=== PATIENT | female | born 1960 | race Caucasian/White ===

== ENCOUNTER 2020-07-01 11:32 | Outpatient (REF) | payer OTHER, SELFPAY ==
--- NOTE | ~2020-07-01 | MM_ITS ---
EXAMINATION: MM SCREENING DIGITAL BREAST TOMOSYNTHESIS, BILATERAL CLINICAL INFORMATION: Screening. Asymptomatic. The lifetime risk of breast cancer based on the Tyrer-Cuzick Model is 8%. COMPARISON: Mammography: 06/25/2019, 06/19/2018, 06/08/2017 TECHNIQUE: Digital breast tomosynthesis is performed in both the craniocaudal and mediolateral oblique views along with computer-aided detection (CAD). Synthesized 2D images are generated from the tomosynthesis. FINDINGS: There are scattered areas of fibroglandular density (ACR BI-RADS breast composition Category b). There are no significant masses, abnormal calcifications, or other abnormalities. The axilla and skin contours are unremarkable. Parenchymal pattern is similar to prior studies. No significant changes. MM/MM tomosynthesis screening BI IMPRESSION: No mammographic evidence of malignancy. ASSESSMENT: BI-RADS 1: Negative RECOMMENDATION: Routine annual mammography screening. This patient's information was entered into a reminder system with a target due date for their next mammogram.
== END 2020-07-01 11:33 | disposition home or self-care (01) ==
LOC: HO.MAMMO 11:32
PROVIDERS: Visit Provider Internal Medicine
DX: Z12.31 Encounter for screening mammogram for malignant neoplasm of breast (principal)
CPT/HCPCS: 77063; 77067

== ENCOUNTER 2021-07-03 15:21 | Outpatient (REF) | payer OTHER, SELFPAY ==
--- NOTE | ~2021-07-03 | MM_ITS ---
EXAMINATION: MM SCREENING DIGITAL BREAST TOMOSYNTHESIS, BILATERAL CLINICAL INFORMATION: Screening. Asymptomatic. The lifetime risk of breast cancer based on the Tyrer-Cuzick Model is 6%. COMPARISON: Mammography: 07/01/2020, 06/25/2019, 06/19/2018, 06/08/2017 TECHNIQUE: Digital breast tomosynthesis is performed in both the craniocaudal and mediolateral oblique views along with computer-aided detection (CAD). Synthesized 2D images are generated from the tomosynthesis. FINDINGS: There are scattered areas of fibroglandular density (ACR BI-RADS breast composition Category b). There are no significant masses, abnormal calcifications, or other abnormalities. Parenchymal pattern is similar to prior studies. Minor asymmetries are stable. There is no developing density. No architectural abnormality. The axilla and skin contours are unremarkable. MM/MM tomosynthesis screening BI IMPRESSION: No significant changes from prior studies. ASSESSMENT: BI-RADS 1: Negative RECOMMENDATION: Routine annual mammography screening. This patient's information was entered into a reminder system with a target due date for their next mammogram.
== END 2021-07-03 15:22 | disposition home or self-care (01) ==
LOC: HO.MAMMO 15:21
PROVIDERS: Visit Provider Internal Medicine
DX: Z12.31 Encounter for screening mammogram for malignant neoplasm of breast (principal)
CPT/HCPCS: 77063; 77067

== ENCOUNTER 2022-08-18 09:38 | Outpatient (REF) | payer OTHER, SELFPAY ==
--- NOTE | ~2022-08-18 | MM_ITS ---
EXAMINATION: MM SCREENING DIGITAL BREAST TOMOSYNTHESIS, BILATERAL CLINICAL INFORMATION: Screening. Asymptomatic. The lifetime risk of breast cancer based on the Tyrer-Cuzick Model is 7%. COMPARISON: Multiple prior exams, most recent 07/03/2021. TECHNIQUE: Digital breast tomosynthesis is performed in both the craniocaudal and mediolateral oblique views along with computer-aided detection (CAD). Synthesized 2D images are generated from the tomosynthesis. FINDINGS: There are scattered areas of fibroglandular density (ACR BI-RADS breast composition Category b). There are no abnormal calcifications. The bilateral axilla and skin contours are unremarkable. Right breast shows no developing density or interval mass or architectural abnormality. Left breast CC view has asymmetric density retroareolar area likely related to summation artifact and positioning. Patient will be recalled for additional imaging. MM/MM tomosynthesis screening BI IMPRESSION: Left: -Asymmetric density retroareolar region, likely summation artifact. Right: -No mammographic evidence of malignancy. ASSESSMENT: BI-RADS 0: Incomplete - Need Additional Imaging Evaluation RECOMMENDATION: 1. Additional views left breast (spot CC, nipple in profile, standard ML nipple in profile). 2. Targeted ultrasound if warranted after review of the additional views. 3. Radiology department staff will contact the patient for additional imaging. This patient's information was entered into a reminder system with a target due date for their next mammogram.
== END 2022-08-18 09:39 | disposition home or self-care (01) ==
LOC: HO.MAMMO 09:38
PROVIDERS: PCP Internal Medicine; Visit Provider Internal Medicine
DX: Z12.31 Encounter for screening mammogram for malignant neoplasm of breast (principal)
CPT/HCPCS: 77063; 77067

== ENCOUNTER 2022-09-13 13:23 | Outpatient (REF) | payer OTHER, SELFPAY ==
--- NOTE | ~2022-09-13 | MM_ITS ---
EXAMINATION: MM DIAGNOSTIC DIGITAL BREAST TOMOSYNTHESIS, LEFT CLINICAL INFORMATION: Recall from screening for asymmetric density retroareolar region, likely summation artifact. COMPARISON: Prior mammography exams, including most recent 08/18/2022. TECHNIQUE: Digital breast tomosynthesis is performed. 2D images are generated from the tomosynthesis. The following views are obtained: Spot CC, spot MLO, rolled CC x2. FINDINGS: There are scattered areas of fibroglandular density (ACR BI-RADS breast composition Category b). The additional views show no persistent asymmetric density. There is no interval mass or developing density or architectural abnormality. Results are discussed with the patient at time of visit. MM/MM tomosynthesis added views L IMPRESSION: Additional imaging demonstrates no significant changes from prior studies. ASSESSMENT: BI-RADS 1: Negative RECOMMENDATION: Routine annual mammography screening. This patient's information was entered into a reminder system with a target due date for their next mammogram.
== END 2022-09-13 13:24 | disposition home or self-care (01) ==
LOC: HO.MAMMO 13:23
PROVIDERS: PCP Internal Medicine; Visit Provider Internal Medicine
DX: R92.2 Inconclusive mammogram (principal)
CPT/HCPCS: 77061; 77065

== ENCOUNTER 2023-08-24 13:21 | Outpatient (REF) | payer OTHER, SELFPAY | END 2023-08-24 13:22 | disposition home or self-care (01) | LOC: HO.MAMMO 13:21 | PROVIDERS: PCP Internal Medicine; Visit Provider Internal Medicine | DX: Z12.31 Encounter for screening mammogram for malignant neoplasm of breast (principal) | CPT/HCPCS: 77063; 77067 ==

== ENCOUNTER → 2023-08-24 13:30 | Outpatient (BNV) | payer OTHER, SELFPAY | PROVIDERS: PCP Internal Medicine; Visit Provider Radiology Diagnostic Radiology | DX: Z12.31 Encounter for screening mammogram for malignant neoplasm of breast (principal) | CPT/HCPCS: 77063; 77067 ==

== ENCOUNTER 2024-08-30 14:04 | Outpatient (REF) | payer OTHER, SELFPAY ==
--- OUTSIDE RECORDS SUMMARY | 2024-08-30 17:08 | XMS_ITS | Data Portability ---
Author Organization [facility] [address] Address [address] [place] [address] Care Team Providers Care Life Insurance Actuary Name Role Phone ARMANDO AHMADI Primary Care Provider Assessment No assessment recorded. Plan of Treatment Reminders Order Date Submit Date Provider Last Modified By Organization Details Last Modified Time Details Appointments None recorded. Lab None recorded. Referral None recorded. Procedures None recorded. Surgeries None recorded. Imaging None recorded. Medication Orders amoxicillin 875 mg-potassiu m clavulanate 125 mg tablet 2022 023 [facility] #[id number], [address] [place], [address], 13:30:47 Patient TargetsNo targets recorded. Patient Instructions Encounter Date Encounter Id Patient Instructions Last Modified By Organization Details Last Modified Time 09/11/2022 [id number] earache: care instructions Not available 09/11/2022 13:30:45 ear infection (otitis media): care instructions Not available 09/11/2022 13:30:45 An ear infection may start with a cold and affect the middle ear (otitis media). It can hurt a lot. Most ear infections clear up on their own in a couple of days and do not need antibiotics. Also, antibiotics do not work against viruses, which may be the cause of your infection. Regular doses of pain relievers are the best way to reduce your fever and help you feel better. How can you care for yourself at home? Take pain medicines exactly as directed. If the doctor gave you a prescription medicine for pain, take it as prescribed. If you are not taking a prescription pain medicine, take an vzsy-vrg-hsbvixn medicine, such as acetaminophen (Tylenol), ibuprofen (Advil, Motrin), or naproxen (Aleve). Read and follow all instructions on the label. Do not take two or more pain medicines at the same time unless the doctor told you to. Many pain medicines have acetaminophen, which is Tylenol. Too much acetaminophen (Tylenol) can be harmful. Plan to take a full dose of pain reliever before bedtime. Getting enough sleep will help you get better. Try a warm, moist face cloth on the ear. It may help relieve pain. If your doctor prescribed antibiotics, take them as directed. Do not stop taking them just because you feel better. You need to take the full course of antibiotics. Not available 09/11/2022 13:30:35 Reason for Referral None Reported. Problems No Known Problems Medical Equipment None Reported. Allergies Allergen ID Allergen Name Allergen Category Reaction Reaction Severity Criticality Documentation Date Start Date Code Code System Note Provider Name and Address Organization Details Recorded Time 970852 Substance with sulfonami de structure and antibacte rial mechanism of action (substanc e) medicatio n anaphylax is Not available high 09/11/2022 71082 8003 SNOMED CARIN Murillo - [facility] 3 12:33:50 Medications Name Sig Start Date Stop Date Status Note LastModified by Organization Details LastModified Time desonide 0.05 % topical cream APPLY AM AND PM AROUND NOSE AND CORNERS OF MOUTH FOR 5-7 DAYS WHEN NEEDED 09/11 completed Not Available Not Available Not Available norethindro ne acetate 5 mg tablet PLEASE SEE ATTACHED FOR DETAILED DIRECTION S active Not Available Not Available No t Available methylpredn isolone 4 mg tablets in a dose pack TAKE 6 TABLETS ON DAY 1 DIRECTED ON PACKAGE AND DECREASE BY 1 TAB EACH DAY FOR A TOTAL OF 6 DAYS 09/11 completed Not Available Not Available Not Available naproxen 500 mg tablet TAKE 1 TABLET BY MOUTH 2 TIMES DAILY NEEDED FOR PAIN (TAKE WITH FOOD.) FOR UP TO 30 DAYS. active Not Available Not Available No t Available amoxicillin 875 mg-potassiu m clavulanate 125 mg tablet TAKE 1 TABLET BY MOUTH EVERY 12 HOURS WITH MEALS FOR 10 DAYS active Not Available Not Available No t Available Vitals Date Recorded Body height Body mass index (BMI) Body weight Oxygen saturation Oxygen saturation in Arterial blood by Pulse oximetry Pain severity - 0-10 verbal numeric rating [Score] - Reported Heart rate Respiratory rate Body temperature Systolic blood pressure Diastolic blood pressure Provider Name and Address Organization Details Last Updated DateTime 177.8 cm 33 kg/m2 214483. 25 g 97 % 97 % 3 80 /min 20 /min 97.6 [degF] 130 mm[Hg] 85 mm[Hg] Kelley Rosaura PA - [facility] 12:35:38 Social History Question Answer Notes LastModified by Organizat ion Details LastModified Time Tobacco Smoking Status Never Smoker Kelleytomer Kaplan null, PA - [facility] 09/11/2022 12:34:16 What Is Your Level Of Alcohol Consumption? None Information not available 09/11/2022 Have You Had Direct Contact, Or Contact During Intimacy, With Monkeypox Rash, Scabs, Or Body Fluids From A Person With Monkeypox? No Information not available 09/11/2022 Do You Use Any Illicit Or Recreational Drugs? No Information not available 09/11/2022 Have You Recently Traveled Abroad? No Information not available 09/11/2022 Do You Or Have You Ever Used Any Other Forms Of Tobacco Or Nicotine? No Information not available 09/11/2022 Sex: Unknown Functional Status None recorded. Mental Status None recorded. Family History Relationship Description Onset Age of this Age Resolved Age Notes LastModified by Organization Details LastModified Time Father No current problems or disability Not available 09/11 12:34:11 Mother No current problems or disability Not available 09/11 12:34:11 Medical History No medical history recorded. Gynecological HistoryNo gynecological history recorded. Obstetrics History GPAL:G 0 P 0 0 0 0 Immunizations Vaccine Type Date Status Note Provider Nam e and Address Organization Details Recorded Time Influenza, split virus, quadrivalent, preservative 9 completed Kelley Rosaura null, PA - [facility] 09/11/2022 12:33:58 Influenza, split virus, quadrivalent, preservative 7 completed Kelley [place] null, PA - [facility] 09/11/2022 12:33:58 Influenza, split virus, quadrivalent, preservative 8 completed Kelley Rosaura null, PA - [facility] 09/11/2022 12:33:58 Influenza, recombinant, quadrivalent, PF 0 completed Kelley Rosaura null, PA - [facility] 09/11/2022 12:33:58 COVID-19, mRNA, LNP-S, PF, 100 mcg/0.5mL dose or 50 mcg/0.25mL dose 1 completed Kelley Rosaura null, PA - [facility] 09/11/2022 12:33:58 COVID-19 vaccine, vector-nr, rS-Ad26, PF, 0.5 mL 1 completed Kelley Rosaura null, PA - [facility] 09/11/2022 12:33:58 Influenza, split virus, quadrivalent, PF 2 completed Kelley [place] null, PA - [facility] 09/11/2022 12:33:58 Past Encounters Encounter ID Performer Location Encounter Start Date Encounter Closed Date Diagnosis/Indication Diagnosis SNOMED-CT Code Diagnosis ICD10 Code Diagnosis Note [id number] [address] [place] [address] 08/03/2017 18:07:07 08/03/2017 19:26:31 [id number] [address] [place] [address] 01/15/2018 16:57:07 01/15/2018 17:15:19 [id number] [address] [place] [address] 06/16/2019 16:59:16 06/16/2019 17:35:47 [id number] Paxton Alcantara NP [address] [place] [address] 09/11/2022 08:54:56 09/11/2022 13:38:01 Acute right otitis media 135676206 H66.91 Health Concerns Section Related Observation LastModified by Organization Detai ls LastModified Time None Recorded Concern Status LastModified by Organization Details LastModified Time None Recorded Advance Directives Directive None Recorded Payers Encounter Date Sequence Insurance Name Policy Number Policy Hinojosa Covered Member ID Hinojosa Member ID Guarantor Name 08/03/2017 1 [facility] [place] [id number] Elaine D D Sleigh [id number] Elaine D Sleigh 01/15/2018 1 [facility] [place] [id number] Elaine D D Sleigh [id number] Elaine D Sleigh 06/16/2019 1 [facility] [place] [id number] Elaine D D Sleigh [id number] Elaine D Sleigh 09/11/2022 1 [facility] [place] [id number] Elaine D D Sleigh [id number] Elaine D Sleigh Notes Date Note Type Note Provider Name and Address Organization Details Recorded Time 09/11/2022 text/html Ear Pain Brief HPIReported bypatient.Location :pain radiates to jaw; right Onset/Timing:const ant pain; gradual onset Duration:occurs daily; constant pain Quality:no itching; no discharge from the ears; no burning;aching pain;sharp pain Severity:getting worse; no fever; able to perform daily activities;interfe res with ability to sleep Context:no recent trauma; no recent ear infection; no recent swimming; no immunocompromise; no dental problems; no recent airplane travel; no scuba diving; non-smoker;recent URI Alleviating factors:NSAIDs Aggravating factors:sinus infections; allergies Associated Symptoms:no cough; no jaw popping or clicking; No decreased appetite; no discharge from ear; no nasal congestion; no nasal discharge; no hearing loss; no sore throat; no dental pain; no jaw pain; no tinnitus;sense of fullness/pressure; no decreased hearing; no muffled hearing Paxton Alcantara NP [address] [place] [place], [address], [place] - [facility] 09/11/2022 13:31:06 OBGyn Episode No OBEpisode recorded.
--- OUTSIDE RECORDS SUMMARY | 2024-08-30 17:08 | XMS_ITS | Patient Health Record ---
Author Organization [facility] Address [address] [place] [address] Care Team Providers Care Journalists And Other Writers Name Role Phone ARMANDO AHMADI M.D. Primary Care Provider SHANNAN Myers Unavailable [phone] Allergies Allergen (clinical drug ingredient) Drug/Non Drug Allergy documented on EMR Reaction Allergy Type Onset Date Status Substance with sulfonamide structure and antibacterial mechanism of action (substance) Sulfa Antibiotics anaphylaxis Drug Allergy Active Reason For Referral No Information Medications Medication SIG (Take, Route, Frequency, Duration) Notes Start Date End Date Status Aygestin 5 MG 1 tablet Orally q 4h rs-d1, v7cat-k6, j5vdb-f0, then twice a day for 14 days for 30 days 09/14/2022 Active Social History Tobacco Use: Social History Observation Description Date Details (start date - stop date) Never Smoker NA - NA Tobacco Use/Smoking Question Answer Notes Are you a nonsmoker Alcohol Screen (Audit-C) Question Answer Notes Did you have a drink contain ing alcohol in the past year? Yes How often did you have a dri nk containing alcohol in the past year? Monthly or less (1 point) How many drinks did you have on a typical day when you were drinking in the past year? 3 or 4 drinks (1 point) How often did you have 6 or more drinks on one occasion in the past year? Never (0 point) Points 2 Interpretation Negative Problems Problem Type SNOMED Code ICD Code Onset Dates Problem Status W/U Status Risk Notes Problem Postmenopausal bleeding (91805218) Postmenopausal bleeding (N95.0) Active confirmed Plan Of Treatment Pending Test Test Name Order Date Sonohysterogram 09/21/2022 Insurance Providers Payer Name Payer Address Payer Phone Subscriber Number Group Number Insured Name Patient Relationship to Insured Coverage Start Date Coverage End Date [facility] [address] [place] [address] [phone] [id number] SAGAR CURTIS Self - patient is the insured Medical (General) History Medical History History ICD Code Disease of gallbladder, unspecified K82. 9 Postmenopausal bleeding N95.0 Surgical History Surgery Date(Month/Year) APPENDECTOMY 1973 1992 1998 HAND SURGERY X 3 2008 GALLBLADDER 2014 KNEE SURGERY 2016 Hospitalization History Reason Date(Month/Year) CELLULITIS 2008 SEE SURGICAL HX SEPSIS 2007
== END 2024-08-30 14:05 | disposition home or self-care (01) ==
LOC: HO.MAMMO 14:04
PROVIDERS: PCP Internal Medicine; Visit Provider Internal Medicine
DX: Z12.31 Encounter for screening mammogram for malignant neoplasm of breast (principal)
CPT/HCPCS: 77063; 77067

== ENCOUNTER → 2024-08-30 14:15 | Outpatient (BNV) | payer OTHER, SELFPAY | PROVIDERS: PCP Internal Medicine; Visit Provider Internal Medicine | DX: Z12.31 Encounter for screening mammogram for malignant neoplasm of breast (principal) | CPT/HCPCS: 77063; 77067 ==

== ENCOUNTER 2024-10-04 12:57 | Outpatient (REF) | payer OTHER, SELFPAY ==
--- NOTE | ~2024-10-04 | MM_ITS ---
EXAMINATION: MM DIAGNOSTIC DIGITAL BREAST TOMOSYNTHESIS, LEFT Limited left breast ultrasound. CLINICAL INFORMATION: Call back from screening for asymmetry in the retroareolar region of the left breast on CC view middle depth. COMPARISON: Mammography: [facility] on PACS. TECHNIQUE: Digital breast tomosynthesis is performed in both the craniocaudal and mediolateral oblique views along with computer-aided detection (CAD). Synthesized 2D images are generated from the tomosynthesis. FINDINGS: There are scattered areas of fibroglandular density (ACR BI-RADS breast composition Category b). Previously seen asymmetry in the retroareolar region of the left breast middle depth on CC view does not persist on additional imaging projections and is stable appearing appearance dating back to 2020 on prior imaging. There are no significant masses, abnormal calcifications, or other abnormalities. Targeted color Doppler ultrasound scanning in the retroareolar region of the left breast and from 10-2 o'clock in the superior breast demonstrates normal fibronodular breast tissue. There is no sonographic abnormal findings. MM/MM tomosynthesis added views L IMPRESSION: There are no significant changes from prior study. ASSESSMENT: BI-RADS BI-RADS 1 - Negative RECOMMENDATION: 1 year F/U Results were provided to the patient at time of visit by the technologist. This patient's information was entered into a reminder system with a target due date for their next mammogram. Electronically signed by: Dorcas Sky DO 10/04/2024 01:50 PM EDT Workstation: [id number]
--- OUTSIDE RECORDS SUMMARY | 2024-10-04 12:59 | XMS_ITS | Patient Health Record ---
Author Organization [facility] Address [address] [address] Care Team Providers Care Urogynaecologist Name Role Phone ARMANDO AHMADI M.D. Primary Care Provider SHANNAN Myers Unavailable [phone] Allergies Allergen (clinical drug ingredient) Drug/Non Drug Allergy documented on EMR Reaction Allergy Type Onset Date Status Substance with sulfonamide structure and antibacterial mechanism of action (substance) Sulfa Antibiotics anaphylaxis Drug Allergy Active Reason For Referral No Information Medications Medication SIG (Take, Route, Frequency, Duration) Notes Start Date End Date Status Aygestin 5 MG 1 tablet Orally q 4h rs-d1, k9kri-l1, k9jmh-l9, then twice a day for 14 days [...] W/U Status Risk Notes Problem Postmenopausal bleeding (N95.0) Active confirmed Plan Of Treatment Pending Test Test Name Order Date Sonohysterogram 09/21/2022 Insurance Providers Payer Name Payer Address Payer Phone Subscriber Number Group Number Insured Name Patient Relationship to Insured Coverage Start Date Coverage End Date [facility] [address] [place] [address] [phone] [id number] SAGAR CURTIS Self - patient is the insured Medical (General) History Medical History History ICD Code Disease of gallbladder, unspecified K82. 9 Postmenopausal bleeding N95.0 Surgical History Surgery Date(Month/Year) APPENDECTOMY 1973 1992 1998 HAND SURGERY X 3 2008 GALLBLADDER 2014 KNEE SURGERY 2016 Hospitalization History Reason Date(Month/Year) CELLULITIS 2008 SEE SURGICAL HX SEPSIS 2007
--- OUTSIDE RECORDS SUMMARY | 2024-10-04 12:59 | XMS_ITS | Data Portability ---
Author Organization [facility] [address] Address [address] [place] [address] Care Team Providers Care Insurance Claim Auditor Name Role Phone ARMANDO AHMADI Primary Care Provider Assessment No assessment recorded. Plan of Treatment Reminders Order Date Submit Date Provider Last Modified By Organization Details Last Modified Time Details Appointments None recorded. Lab None recorded. Referral None recorded. Procedures None recorded. Surgeries None recorded. Imaging None recorded. Medication Orders amoxicillin 875 mg-potassiu m clavulanate 125 mg tablet 2022 023 [facility]acy #[id number], [address] [place], [address], 13:30:47 Patient TargetsNo targets recorded. Patient Instructions Encounter Date Encounter Id Patient Instructions Last Modified By Organization Details Last Modified Time 09/11/2022 [id number] earache: care instructions Not available 09/11/2022 13:30:45 [...] taking a prescription pain medicine, take an wrdj-kgi-xhaxwfp medicine, such as acetaminophen (Tylenol), ibuprofen (Advil, [...] Name and Address Organization Details Recorded Time 625783 Substance with sulfonami de structure and antibacte rial mechanism of action (substanc e) medicatio n anaphylax is Not available high 09/11/2022 04610 8003 SNOMED CARIN Murillo - [facility] [...] saturation in Arterial blood by Pulse oximetry Heart rate Respiratory rate Body temperature Systolic blood pressure Diastolic blood pressure Provider Name and Address Organization Details Last Updated DateTime 3 177.8 cm 33 kg/m2 305576. 25 g 97 % 97 % 80 /min 20 /min 97.6 [degF] 130 mm[Hg] 85 mm[Hg] Kelley Rosaura PA - [facility] 12:35:38 Social History Question Answer Notes LastModified by Knomo Details LastModified Time Tobacco Smoking Status Never Smoker Kelleytomer Kaplan null, PA - [facility] 09/11/2022 12:34:16 Have You Had Direct Contact, Or Contact During Intimacy, With Monkeypox Rash, Scabs, Or Body Fluids From A Person With Monkeypox? No Information not available 09/11/2022 Have You Recently Traveled Abroad? No Information not available 09/11/2022 Sex: Unknown Functional Status Question Answer Note LastModified by Knomo Details LastModified Time Do you use any illicit or recreational drugs? No Information not available 09/11/2022 Do you or have you ever used any other forms of tobacco or nicotine? No Information not available 09/11/2022 What is your level of alcohol consumption? None Information not available 09/11/2022 Mental Status None recorded. Family History Relationship [...] split virus, quadrivalent, preservative 7 completed Kelley [place] null, PA - [facility] 09/11/2022 12:33:58 [...] split virus, quadrivalent, PF 2 completed Kelley Rosaura null, PA - [facility] 09/11/2022 12:33:58 Past Encounters Encounter ID Performer Location Encounter Start Date Encounter Closed Date Diagnosis/Indication Diagnosis SNOMED-CT Code Diagnosis ICD10 Code Diagnosis Note [id number] [address] [place] [address] 08/03/2017 18:07:07 08/03/2017 19:26:31 [id number] [address] [place] [address] 01/15/2018 16:57:07 01/15/2018 17:15:19 [id number] [address] [place] [address] 06/16/2019 16:59:16 06/16/2019 17:35:47 [id number] Paxton Alcantara NP [address] [place] [address] 09/11/2022 08:54:56 09/11/2022 13:38:01 Acute right otitis media 051010028 H66.91 Health Concerns Section Related Observation LastModified by Organization Detai ls LastModified Time None Recorded Concern Status LastModified by Organization Details LastModified Time None Recorded Advance Directives Directive None Recorded Payers Insurance Date Sequence Insurance Name Policy Number Policy Hinojosa Covered Member ID Hinojosa Member ID Guarantor Name 09/11/2022 1 [facility] [place] [place] [id number] Elaine Francis [id number] Elaine Francis Notes Date Note Type Note Provider Name [...] no muffled hearing Paxton Alcantara NP [address] [place] [place], [address], [place] - [facility] 09/11/2022 13:31:06 OBGyn Episode No OBEpisode recorded.
== END 2024-10-04 12:58 | disposition home or self-care (01) ==
LOC: HO.MAMMO 12:57
PROVIDERS: PCP Internal Medicine; Visit Provider Internal Medicine
DX: N64.89 Other specified disorders of breast (principal)
CPT/HCPCS: 76642; 77061; 77065

== ENCOUNTER → 2024-10-04 13:00 | Outpatient (BNV) | payer OTHER, SELFPAY | PROVIDERS: PCP Internal Medicine; Visit Provider Internal Medicine | DX: R92.8 Other abnormal and inconclusive findings on diagnostic imaging of breast (principal) | CPT/HCPCS: 76642; 77061; 77065 ==